=== PATIENT | female | born 1950 | race Two or more races ===

== ENCOUNTER 2017-07-10 23:12 | Emergency (ER) | payer OTHER ==
[~2017-07-10] VITALS: Ht 152.4 cm; Wt 76.2 kg
[2017-07-10] MEDS ORDERED: METOPROLOL SUCC50 MG (23:21)
[2017-07-10] MEDS ORDERED: COZAAR50 MG (23:21)
[2017-07-10] MEDS ORDERED: SYNTHROID50 MCG (23:21)
[2017-07-10] MEDS ORDERED: SIMVASTATIN10 MG (23:22)
[2017-07-10] MEDS ORDERED: ASA81 MG (23:22)
[2017-07-11] MEDS ORDERED: ALBUTEROL2.5 MG/3 M IH (02:21)
[2017-07-11] MEDS ORDERED: ZYNCOF 20-400120 ML PO (02:21)
[2017-07-11] MEDS ORDERED: ZITHROMAX500 MG PO (02:21)
== END 2017-07-11 02:20 | disposition home or self-care (01) ==
LOC: EDBD 23:12 → ER 23:12
DX: J40 Bronchitis, not specified as acute or chronic (principal); J11.1 Influenza due to unidentified influenza virus with other respiratory manifestations